=== PATIENT | male | born 1980 | race Caucasian/White ===

== ENCOUNTER 2016-11-14 12:55 | Inpatient (IN) | payer MEDICARE, OTHER ==
[2016-11-14] MEDS ORDERED: NORCO 7.5/325 MG TAB PO PRN (14:02)
--- NOTE | 2016-11-14 15:26 | XRAY ---
Indication: Swing bed placement. Comparison: October 26, 2013. PA/lateral chest remains clear. Heart and mediastinal structures within normal limits. Bony thorax intact. Impression: Stable nonacute chest.
[2016-11-14] MEDS ORDERED: NORCO 7.5/325 MG TAB PO SCH (16:30)
[2016-11-14] MEDS: Cyclobenzaprine 10 MG PO SCH ×2 (16:50→21:14)
[2016-11-14] MEDS: Neurontin 400 MG PO SCH ×2 (16:50→21:14)
[2016-11-14] MEDS: Klonopin 0.5 MG PO PRN (16:51)
[2016-11-14] MEDS: NORCO 7.5/325 MG TAB PO SCH (18:42)
[2016-11-14] MEDS ORDERED: NON-FORMULARY ITEM (Cyclobenzaprine Hcl [Flexeril] 5 MG) PO SCH (22:00)
[2016-11-15] MEDS: NORCO 7.5/325 MG TAB PO SCH ×2 (00:36→05:48)
[2016-11-15] MEDS: Klonopin 0.5 MG PO PRN ×4 (00:37→22:46)
--- NOTE | 2016-11-15 07:49 | PCM.HP ---
History of Present Illness - Chief Complaint Chief Complaint: Deconditioning r/t left total hip Date: 11/15/16 History of Present Illness: is a 36 year old male. - Review of Systems Constitutional: No Fever, No Chills Eyes: No Symptoms Ears, Nose, & Throat: No Symptoms Respiratory: No Cough, No Short Of Breath Cardiac: No Chest Pain, No Edema, No Syncope Abdominal/Gastrointestinal: No Abdominal Pain, No Nausea, No Vomiting, No Diarrhea Genitourinary Symptoms: No Dysuria Musculoskeletal: Joint Pain, No Back Pain, No Neck Pain, No Joint Redness Skin: No Cellulitis, No Rash Neurological: No Dizziness, No Focal Weakness, No Sensory Changes Psychological: No Symptoms Endocrine: No Symptoms Hematologic/Lymphatic: No Symptoms Immunological/Allergic: No Symptoms Medications & Allergies Home Medications: Home Medication List Citalopram Hydrobromide 20 mg* [ceLEXa 20 MG] 20 mg PO DAILY #30 tablet 10/26 [Rx Confirmed 11/14/16] Gabapentin 400 mg [Neurontin 400 MG] 400 mg PO TID 07/05/16 [History Confirmed 11/14/16] Apixaban [Eliquis] 2.5 mg PO DAILY 11/14/16 [History Confirmed 11/14/16] Clonazepam [Klonopin] 1 mg PO TID PRN 11/14/16 [History Confirmed 11/14/16] Cyclobenzaprine HCl [Flexeril] 5 mg PO TID 11/14/16 [History Confirmed 11/14/16] Hydrocodone Bit/Acetaminophen [[place] 7.5-325 Tablet] 1 each PO Q6H 11/14/16 [ History Confirmed 11/14/16] Allergies/Adverse Reactions: Allergies Allergy/AdvReac Type Severity Reaction Status Date / Time morphine Allergy Verified 01/21/14 14:37 furosemide [From Lasix] AdvReac Intermediate caused Verified 10/31/13 15:16 fluid retention - Past Medical History Past Medical History: Yes Neurological History: No Pertinent History ENT History: No Pertinent History Cardiac History: Arrhythmia Respiratory History: No Pertinent History Endocrine Medical History: Hypoglycemia Musculoskelatal History: Fractures GI Medical History: Crohns Disease History: No Pertinent History Pyscho-Social History: Anxiety, Depression, Other (PTSD) Male Reproductive Disorders: No Pertinent History Comment: FACIAL FRACTURES 8 YRS AGO - Past Surgical History Past Surgical History: Yes Neuro Surgical History: No Pertinent History Cardiac History: No Pertinent History Respiratory Surgery: No Pertinent History GI Surgical History: No Pertinent History, Other Genitourinary Surgical Hx: No Pertinent History Musculskeletal Surgical Hx: Other Male Surgical History: No Pertinent History Other Surgical History: I&D ON R ARM ABCESS - Social History Smoking Status: Current every day smoker How long have you smoked: 22 Exposure to second hand smoke: No Alcohol: Occasionally Drug Use: none - Physical Exam Vital Signs: Vital Signs - 24 hr Temp Pulse Resp BP BP Pulse Ox 11/15/16 07:14 97.7 F 77 20 112/55 97 11/14/16 19:47 98.5 F 95 H 22 121/64 99 11/14/16 14:06 97.8 F 90 22 151/83 95 11/14/16 13:37 97.8 F 90 22 151/68 95 11/14/16 13:25 97.8 F 90 22 151/68 95 11/14/16 13:19 97.8 F 90 22 151/83 95 General Appearance: no apparent distress, alert, obese Neurologic Exam: alert, oriented x 3, cooperative, normal mood/affect, nml cerebellar function, sensation nml, No motor deficits Eye Exam: PERRL/EOMI, eyes nml inspection Ears, Nose, Throat Exam: normal ENT inspection, pharynx normal, moist mucous membranes Neck Exam: normal inspection, non-tender, supple, full range of motion Respiratory Exam: normal breath sounds, lungs clear, No respiratory distress Cardiovascular Exam: regular rate/rhythm, normal heart sounds, normal peripheral pulses Gastrointestinal/Abdomen Exam: soft, normal bowel sounds, No tenderness, No mass Back Exam: normal inspection, normal range of motion, No CVA tenderness, No vertebral tenderness Extremity Exam: normal inspection, No kumar's sign, No pedal edema Skin Exam: normal color, warm, dry, other (incision left hip with serous drainage no redness marquis in place), No rash Lymphatic Exam: No adenopathy Results - Radiology Impressions Radiology Exams & Impressions: Radiology Procedures Category Date Time Status CHEST 2 VIEWS (PA AND LAT) Routine Exams 11/14/16 15:00 Completed Assessment/Plan (1) Status post total hip replacement, left Current Visit: Yes Status: Acute Assessment & Plan: had right hip replaced 6 weeks ago and now left replaced for avascular necrosis at [facility] and in need of rehab therapy he notes was wheelchair bound for 3 years prior to the replacement.s Code(s): Z96.642 - PRESENCE OF LEFT ARTIFICIAL HIP JOINT (2) Status post total hip replacement, right Current Visit: Yes Status: Chronic Code(s): Z96.641 - PRESENCE OF RIGHT ARTIFICIAL HIP JOINT (3) PTSD (post-traumatic stress disorder) Current Visit: Yes Status: Chronic Code(s): F43.10 - POST-TRAUMATIC STRESS DISORDER, UNSPECIFIED (4) Depression Current Visit: Yes Status: Chronic Code(s): F32.9 - MAJOR DEPRESSIVE DISORDER, SINGLE EPISODE, UNSPECIFIED (5) Obesity Current Visit: Yes Status: Chronic Code(s): E66.9 - OBESITY, UNSPECIFIED (6) Crohn disease Current Visit: Yes Status: Chronic Assessment & Plan: not on controller medications unclear history on this no active disease currently Code(s): K50.90 - CROHN'S DISEASE, UNSPECIFIED, WITHOUT COMPLICATIONS
[2016-11-15] MEDS: ELIQUIS PO SCH ×2 (08:43→20:33)
[2016-11-15] MEDS: Neurontin 400 MG PO SCH ×3 (08:44→20:33)
[2016-11-15] MEDS: Cyclobenzaprine 10 MG PO SCH ×3 (08:44→20:33)
[2016-11-15] MEDS: ceLEXa 20 MG PO SCH (08:46)
[2016-11-15] MEDS ORDERED: Aplisol ID SCH (10:00)
[2016-11-15] MEDS ORDERED: ELIQUIS PO SCH (10:00)
[2016-11-15] MEDS ORDERED: NON-FORMULARY ITEM (Apixaban [Eliquis] 2.5 MG) PO SCH (10:00)
[2016-11-15] MEDS: Norco 10/325 MG Tablet PO PRN ×4 (10:19→22:46)
[2016-11-16] MEDS: Norco 10/325 MG Tablet PO PRN ×4 (06:58→20:23)
[2016-11-16] MEDS: Cyclobenzaprine 10 MG PO SCH ×3 (11:42→21:49)
[2016-11-16] MEDS: ceLEXa 20 MG PO SCH (11:42)
[2016-11-16] MEDS: Neurontin 400 MG PO SCH ×3 (11:43→21:49)
[2016-11-16] MEDS: ELIQUIS PO SCH ×2 (11:44→21:48)
[2016-11-16] MEDS: Klonopin 0.5 MG PO PRN ×3 (11:55→21:56)
[2016-11-16] MEDS ORDERED: TYLENOL 325 MG PO PRN (18:11)
[2016-11-16] MEDS: Seroquel 100 MG PO SCH (21:49)
[2016-11-17] MEDS: Norco 10/325 MG Tablet PO PRN ×4 (05:17→19:49)
[2016-11-17] MEDS: ELIQUIS PO SCH ×2 (09:24→21:33)
[2016-11-17] MEDS: Seroquel 100 MG PO SCH ×2 (09:25→21:33)
[2016-11-17] MEDS: ceLEXa 20 MG PO SCH (09:25)
[2016-11-17] MEDS: Klonopin 0.5 MG PO PRN ×3 (09:25→21:39)
[2016-11-17] MEDS: Cyclobenzaprine 10 MG PO SCH ×3 (09:25→21:33)
[2016-11-17] MEDS: Neurontin 400 MG PO SCH ×3 (09:25→21:33)
[2016-11-18] MEDS: Norco 10/325 MG Tablet PO PRN ×5 (03:36→20:38)
[2016-11-18] MEDS: Neurontin 400 MG PO SCH ×3 (08:46→20:44)
[2016-11-18] MEDS: Cyclobenzaprine 10 MG PO SCH ×3 (08:46→20:40)
[2016-11-18] MEDS: ceLEXa 20 MG PO SCH (08:47)
[2016-11-18] MEDS: ELIQUIS PO SCH ×2 (08:48→20:41)
[2016-11-18] MEDS: Seroquel 100 MG PO SCH ×2 (08:49→20:42)
[2016-11-18] MEDS: Klonopin 0.5 MG PO PRN ×3 (08:51→21:44)
[2016-11-18] MEDS: CARDURA 2 MG PO SCH (20:40)
[2016-11-19] MEDS: Norco 10/325 MG Tablet PO PRN ×6 (01:44→22:33)
[2016-11-19] MEDS: ceLEXa 20 MG PO SCH (09:26)
[2016-11-19] MEDS: ELIQUIS PO SCH ×2 (09:26→21:34)
[2016-11-19] MEDS: Neurontin 400 MG PO SCH ×3 (09:26→21:35)
[2016-11-19] MEDS: Seroquel 100 MG PO SCH ×2 (09:26→21:36)
[2016-11-19] MEDS: Cyclobenzaprine 10 MG PO SCH ×3 (09:27→21:36)
[2016-11-19] MEDS: Klonopin 0.5 MG PO PRN ×3 (09:30→21:36)
[2016-11-19] MEDS: CARDURA 2 MG PO SCH (21:36)
[2016-11-20] MEDS: Norco 10/325 MG Tablet PO PRN ×6 (02:37→23:55)
[2016-11-20] MEDS: Cyclobenzaprine 10 MG PO SCH ×3 (09:21→21:37)
[2016-11-20] MEDS: ceLEXa 20 MG PO SCH (09:22)
[2016-11-20] MEDS: Seroquel 100 MG PO SCH ×2 (09:22→21:37)
[2016-11-20] MEDS: Neurontin 400 MG PO SCH ×3 (09:23→21:37)
[2016-11-20] MEDS: ELIQUIS PO SCH ×2 (09:23→21:37)
[2016-11-20] MEDS: Klonopin 0.5 MG PO PRN ×3 (09:30→21:37)
[2016-11-20] MEDS: CARDURA 2 MG PO SCH (21:37)
[2016-11-21] MEDS: Norco 10/325 MG Tablet PO PRN ×5 (04:07→20:45)
[2016-11-21] MEDS: Cyclobenzaprine 10 MG PO SCH ×3 (09:21→20:46)
[2016-11-21] MEDS: Seroquel 100 MG PO SCH ×2 (09:21→20:45)
[2016-11-21] MEDS: Neurontin 400 MG PO SCH ×3 (09:22→20:45)
[2016-11-21] MEDS: ELIQUIS PO SCH ×2 (09:22→20:45)
[2016-11-21] MEDS: ceLEXa 20 MG PO SCH (09:23)
[2016-11-21] MEDS: Klonopin 0.5 MG PO PRN ×3 (09:23→20:44)
[2016-11-21] MEDS ORDERED: Lasix 40 MG PO SCH (10:00)
[2016-11-21] MEDS: Klor Con 10 MEQ PO SCH (10:52)
[2016-11-21] MEDS: BUMEX 1 MG PO SCH (10:52)
[2016-11-21] MEDS: CARDURA 2 MG PO SCH (20:46)
[2016-11-21] MEDS ORDERED: Lactated Ringers 1,000 ML IV ONE (21:07)
[2016-11-22] MEDS: Norco 10/325 MG Tablet PO PRN ×3 (00:52→08:45)
[2016-11-22 07:14] VITALS: BP 108/54; PULSE 87; O2SAT 94
[2016-11-22] MEDS: Klonopin 0.5 MG PO PRN (07:30)
--- NOTE | 2016-11-22 08:19 | PCM.DCORD ---
- Discharge Discharge Date: 11/22/16 Disposition: Home, Self-Care Condition: Stable Prescriptions: New Doxazosin Mesylate 2 mg [Cardura 2 mg] 2 mg PO HS #30 tablet Apixaban [Eliquis] 2.5 mg PO BID #60 tablet Continue Citalopram Hydrobromide 20 mg* [ceLEXa 20 MG] 20 mg PO DAILY #30 tablet Gabapentin 400 mg [Neurontin 400 MG] 400 mg PO TID Hydrocodone Bit/Acetaminophen [[place] 7.5-325 Tablet] 1 each PO Q6H Cyclobenzaprine HCl [Flexeril] 5 mg PO TID Clonazepam [Klonopin] 1 mg PO TID PRN Discontinued Apixaban [Eliquis] 2.5 mg PO DAILY Instructions: Hip Replacement Additional Instructions: MAY DC HOME ON 11/22/16 WITH INSTRUCTIONS BELOW: FOLLOWUP WITH DR. BOYCE SCHEDULED OUTPATIENT PHYSICAL THERAPY TWICE WEEKLY FOR THE NEXT 4 WEEKS DRESSING CHANGE WITH EACH THERAPY SESSION (USE AUSTEN KIT) CONTINUE TO USE ABDUCTOR PILLOW AT HOME WHEN SITTING (LEGS PROPPED UP)/ SLEEPING USE WALKER WHEN WALKING Follow up with: DYLON GALAN [Primary Care Provider] - 11/29/16 3:45 pm LALIT BOYCE [ACTIVE STAFF] - 11/28/16 10:30 am Forms: Patient Portal Information
--- NOTE | 2016-11-22 08:36 | PCM.DCORD ---
- Discharge Discharge Date: 11/22/16 Disposition: Home, Self-Care Condition: Stable Prescriptions: New Apixaban [Eliquis] 2.5 mg PO BID #60 tablet Prazosin HCl 2 mg PO HS #30 capsule Quetiapine Fumarate [Seroquel] 100 mg PO BID #60 tablet Continue Citalopram Hydrobromide 20 mg* [ceLEXa 20 MG] 20 mg PO DAILY #30 tablet Gabapentin 400 mg [Neurontin 400 MG] 400 mg PO TID Hydrocodone Bit/Acetaminophen [[place] 7.5-325 Tablet] 1 each PO Q6H Cyclobenzaprine HCl [Flexeril] 5 mg PO TID Discontinued Clonazepam [Klonopin] 1 mg PO TID PRN Apixaban [Eliquis] 2.5 mg PO DAILY Instructions: Hip Replacement Additional Instructions: MAY DC HOME ON 11/22/16 WITH INSTRUCTIONS BELOW: FOLLOWUP WITH DR. BOYCE SCHEDULED OUTPATIENT PHYSICAL THERAPY TWICE WEEKLY FOR THE NEXT 4 WEEKS DRESSING CHANGE WITH EACH THERAPY SESSION (USE AUSTEN KIT) CONTINUE TO USE ABDUCTOR PILLOW AT HOME WHEN SITTING (LEGS PROPPED UP)/ SLEEPING USE WALKER WHEN WALKING Follow up with: DYLON GALAN [Primary Care Provider] - 11/29/16 3:45 pm LALIT BOYCE [ACTIVE STAFF] - 11/28/16 10:30 am Forms: Patient Portal Information
[2016-11-22] MEDS: Seroquel 100 MG PO SCH (08:43)
[2016-11-22] MEDS: Cyclobenzaprine 10 MG PO SCH (08:43)
[2016-11-22] MEDS: BUMEX 1 MG PO SCH (08:43)
[2016-11-22] MEDS: Klor Con 10 MEQ PO SCH (08:44)
[2016-11-22] MEDS: ELIQUIS PO SCH (08:44)
[2016-11-22] MEDS: Neurontin 400 MG PO SCH (08:45)
[2016-11-22] MEDS: ceLEXa 20 MG PO SCH (08:45)
--- NOTE | 2016-11-22 17:23 | PCM.DS ---
Discharge Summary Date of Admission: 11/14/16 12:55 Date of Discharge: 11/22/16 Admitting Physician: DYLON GALAN Primary Care Provider: DYLON GALAN Allergies Allergies morphine Allergy (Verified 01/21/14 14:37) furosemide [From Lasix] Adverse Reaction (Intermediate, Verified 10/31/13 15:16) caused fluid retention Hospital Summary - Hospital Course Hospital Course: has reported history of avascular necrosis secondary to his steroid use it would appear with his history of crohns that apparently is not currently active and has not been recently. He had right hip replaced last month and now had left hip replaced by Dr. Dyer at [facility] and presents here for further rehab therapy prior to discharge to home. He continues to smoke throughout the hospital stay outside despite being advised against this. His mood was improved on the doxazosin hs and the seroquel as the pharmacy did not have prazosin that was started at [facility]. he progressed well with therapies and was walking in the halls with a walker. He had some swelling in the lower extremities and received a dose of bumex po. He was anticoagulated with Eliquis. He has f/u with Dr. Dyer. He generally follows outpatient with Imelda Santana [facility] who stopped his klonopin after some inconsistent drug testing when he had previously been on chronic opiate therapy as well. He was on clonazepam in the hospital but discussed we would not write for continued as his primary was not continuing this and he was also taking opiate medications from his orthopedist. - Vitals & Intake/Output Vital Signs: Vital Signs Temperature 97.8 F 11/22/16 07:13 Pulse Rate 87 11/22/16 07:13 Respiratory Rate 20 11/22/16 07:13 Blood Pressure 108/54 11/22/16 07:13 O2 Sat by Pulse Oximetry 94 L 11/22/16 07:13 Intake & Output: Intake & Output 11/20/16 11/21/16 11/22/16 11/23/16 11:59 11:59 11:59 11:59 Intake Total 2320 2520 3940 Output Total 600 800 Balance 1720 2520 3140 Weight 142.882 kg - Lab Micro Results-Entire Visit: Microbiology 11/17/16 10:40 Gram Stain - Final Drainage - Left Wound Culture - Final ORGANISMS ISOLATED ARE CONSISTENT WITH NORMAL SKIN BETSEY LIGHT GROWTH, NO PREDOMINANT ORGANISM - Procedures and Test Procedures and Tests throughout Hospitalization: Therapy Orders & Screens 11/14/16 13:33 PT Eval & Treat ( Order) ROUTINE Evaluate: Yes Treat: Yes Reason for Eval:: Deconditioning S/P total left hip Diagnosis: Deconditioning r/t left total hip 11/15/16 14:57 OT Eval and Treat ( Order) ROUTINE Comment: Consulting Provider: Physician Instructions: Reason For Exam: Diagnosis: Deconditioning r/t left total hip Discharge Exam General Appearance: no apparent distress, obese, other (pleasent walking in hallway with walker) Neurologic Exam: alert, oriented x 3, cooperative Skin Exam: warm, dry Final Diagnosis/Problem List - Final Discharge Diagnosis/Problem (1) Status post total hip replacement, left Status: Acute (2) Status post total hip replacement, right Status: Chronic (3) PTSD (post-traumatic stress disorder) Status: Chronic (4) Depression Status: Chronic (5) Obesity Status: Chronic (6) Crohn disease Status: Chronic - Discharge Discharge Date: 11/22/16 Disposition: Home, Self-Care Condition: Stable Prescriptions: New Apixaban [Eliquis] 2.5 mg PO BID #60 tablet Prazosin HCl 2 mg PO HS #30 capsule Quetiapine Fumarate [Seroquel] 100 mg PO BID #60 tablet Continue Citalopram Hydrobromide 20 mg* [ceLEXa 20 MG] 20 mg PO DAILY #30 tablet Gabapentin 400 mg [Neurontin 400 MG] 400 mg PO TID Hydrocodone Bit/Acetaminophen [[place] 7.5-325 Tablet] 1 each PO Q6H Cyclobenzaprine HCl [Flexeril] 5 mg PO TID Discontinued Clonazepam [Klonopin] 1 mg PO TID PRN Apixaban [Eliquis] 2.5 mg PO DAILY Instructions: Hip Replacement Additional Instructions: MAY DC HOME ON 11/22/16 WITH INSTRUCTIONS BELOW: FOLLOWUP WITH DR. DYER SCHEDULED OUTPATIENT PHYSICAL THERAPY TWICE WEEKLY FOR THE NEXT 4 WEEKS DRESSING CHANGE WITH EACH THERAPY SESSION (USE AUSTEN KIT) CONTINUE TO USE ABDUCTOR PILLOW AT HOME WHEN SITTING (LEGS PROPPED UP)/ SLEEPING USE WALKER WHEN WALKING, UNTIL CLEARED BY DR. DYER TO RETURN TO [facility] Follow up with: DYLON GALAN [Primary Care Provider] - 11/29/16 3:45 pm LALIT DYER [ACTIVE STAFF] - 11/28/16 10:30 am Forms: Discharge Instructions, Patient Portal Information
[2016-11-26] MEDS ORDERED: Aplisol ID SCH (10:00)
== END 2016-11-22 11:00 | disposition home or self-care (01) | DRG 554 ==
LOC: MED SURG 12:55
PROVIDERS: ADMIT Family Medicine; ATTEND Family Medicine
DX: M87.9 Osteonecrosis, unspecified (principal); K50.90 Crohn's disease, unspecified, without complications; Z96.643 Presence of artificial hip joint, bilateral; Z79.52 Long term (current) use of systemic steroids; F43.12 Post-traumatic stress disorder, chronic; F32.9 Major depressive disorder, single episode, unspecified; E66.9 Obesity, unspecified
CPT/HCPCS: 71020; 87070; 97110-GP; A9270-GY